=== PATIENT | male | born 1990 | race Hispanic/Latino ===

== ENCOUNTER 2022-09-27 17:41 | Emergency (ER) | payer OTHER, SELFPAY ==
[2022-09-27 17:43] VITALS: BP 130/89; PULSE 96; RESP 18; TEMP 37.4; O2SAT 99; BMI 29.2
--- NOTE | 2022-09-27 19:09 | EDS_ITS ---
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 No blood or coffee grounds.) Quality: Negative for Nonbilious, Blood streaks, Coffee ground or Hematemesis Diarrhea/Melena/Hematochezia GI Symptom: Positive for Diarrhea; Negative for Melena or Hematochezia Onset: Yesterday (5 episodes since onset) Stool Quality: Positive for Loose and Watery; Negative for Mucous, Black, Maroon or BRB per rectum Associated Symptoms Associated Symptoms: Positive for - (Reports decreased urine output); Negative for Dysuria, Frequency, Hematuria or Urgency Narrative Narrative: Patient is a 31-year-old Latvian-speaking male who presents because of burning upper abdominal pain with nausea, vomit diarrhea. He had a temperature documented to 99 degrees in the department. He complains subjectively of fever. He denies headache, visual, ocular auditory symptoms. He denies upper respiratory tract infectious symptoms. He denies coffee-ground emesis or blood in his emesis. He denies black or maroon-colored stool. He denies blood or mucus in his diarrhea. He is been in contact with no one there is been ill in the past week. He has not eaten anything that tasted unusual to him. He does endorse orthostatic symptoms, thirst and dry mouth. He has no past medical history. He has no allergies. He is on no medication. Prior similar symptoms: No Recent Illness/Hospitalization: No PFSH PFSH Medical History no medical history no medical history Home Medications ondansetron 4 mg disintegrating tablet 4 mg PO Q8H PRN PRN Nausea #5 tabs 09/27/22 [Rx Last Taken Unknown] Allergy/AdvReac Type Severity Reaction Status Date / Time No Known Allergies Allergy Verified 09/27/22 17:46 Surgical History no surgical history no surgical history Social History (Updated 09/27/22 @ 19:[address] Robin Patel MD) household members: family Smoking Status: Never smoker alcohol intake: current alcohol intake frequency: holidays/special occasions only substance use type: does not use ROS ROS ED Constitutional Constitutional ED: Reports fever(s) and subjective; Denies chills, sweats or weight loss ENT ENT ED: Denies ear pain, rhinorrhea or sore throat Cardiovascular Cardiovascular: Denies chest pain, palpitations or racing heartbeat Respiratory/Chest Respiratory/Chest: Denies cough, dyspnea or dyspnea on exertion Gastrointestinal Gastrointestinal: Reports abdominal pain, diarrhea, nausea and vomiting; Denies constipation or melena Genitourinary Genitourinary ED: Reports other Details: Decreased urine output ; Denies dysuria, hematuria or urinary frequency Musculoskeletal Musculoskeletal: Denies arthralgias, back pain, myalgias or neck pain Integumentary Denies abscess, Abrasions or rash Neurologic Neurologic: Denies headache(s), paresthesias or weakness Endocrine Endocrinology: Denies polydipsia, polyphagia or polyuria Hematologic/Lymphatic Hematologic/Lymphatic: Denies easy bleeding or easy bruising EXAM Physical Exam Const Vital Signs: 09/27/22 17:43 Temperature 99.4 F H Temperature Source Temporal Pulse Rate 96 Respiratory Rate 18 Blood Pressure 130/89 H Blood Pressure Mean 102 Pulse Ox 99 Oxygen Delivery Method Room Air Positive well nourished and well developed General Appearance ED: well developed and NAD; Negative for pallor HEENT Reports TM's clear and dry mucous membranes normocephalic and atraumatic Tympanic Membrane ED: Yes TM's clear Mouth ED: Yes dry mucous membranes Mouth: dry mucous membranes Eyes PERRL and EOMs intact bilaterally General Eye ED: Negative for pale conjunctiva or scleral icterus Neck no lymphadenopathy, supple and no JVD Resp normal respiratory effort and clear to auscultation bilaterally Cardio regular rate, regular rhythm, S1 normal heart sound, S2 normal heart sound and no murmurs GI non-distended and no masses; Negative for non-tender Auscultation: hyperactive bowel sounds Palpation: soft and tender LUQ and RUQ (Negative clinical Ng sign.) Back/Spine no CVA tenderness Extremity full ROM General Extremety ED: Negative for edema or tenderness General Extremity: Negative for edema Neuro CN's II-XII intact bilaterally and moves all extremities Sensorium / Orientation: alert Psych mental status grossly normal and thought process normal Skin no wounds General Skin Exam: Negative for jaundice or pallor MDM MDM MDM Narrative Medical decision making narrative: Patient presents with abdominal pain with nausea, vomiting diarrhea. Suspect this represents a viral gastroenteritis. Will obtain urine to assess specific gravity and for ketones and rule out hyperglycemia. Patient was medicated with Zofran for the nausea and vomiting. Bentyl for the pain and Imodium for the diarrhea. 1 L of normal saline was ordered. Since patient is on no medication with no past medical history laboratory studies were not obtained. There are no old records for review. History & Record Review Discussion w/independent historian: Patient and Other (Niece used as dental hygiene administrative assistant) Additional record(s) reviewed:: No prior records Lab Data Labs: Laboratory Results - last 24 hr 09/27/22 20:09 Urine Color Yellow Urine Clarity Clear Urine pH 5.0 Ur Specific Foster 1.025 Urine Protein 15 H Urine Glucose (UA) Normal Urine Ketones Negative Urine Occult Blood Negative Urine Nitrite Negative Urine Bilirubin Negative Urine Urobilinogen Normal Ur Leukocyte Esterase Negative Treatment and Re-Evaluation :: Patient was reassessed at 07/11/2003. Patient sitting up smiling. He has had no further vomiting or diarrhea. He does acknowledge he feels better. His exam is benign. Therefore, will discharge to home with appropriate home-going instructions. Discharge Plan Triage Chief Complaint: Abd Pain Other Complaint: Dizziness Shortness of Breath ED Provider: Robin Patel Dx/Rx/DC Orders Clinical Impression: Acute upper abdominal pain, Nausea vomiting and diarrhea, Fever, Acute dehydration Instructions: ED Gastroenteritis, Viral (Adult) Prescriptions: New ondansetron [ondansetron] 4 mg tablet,disintegrating 4 mg PO Q8H PRN PRN (Reason: Nausea) Qty: 5 0RF Primary Care Provider: Care Physician,No Primary Referrals: Care Physician,No Primary [Primary Care Provider] - Activity Restrictions/Additional Instructions: Take Imodium for diarrhea. No more than 8 capsules in a 24-hour. Print Language: Latvian Disposition Disposition: Home, Self Care
[2022-09-27] MEDS: Dicyclomine 10 MG Capsule 20 MG PO (19:10)
[2022-09-27] MEDS: Loperamide 2 MG Capsule 4 MG PO (19:10)
[2022-09-27] MEDS: Ondansetron 4 MG/2 ML Vial IV (19:10)
[2022-09-27] MEDS: 0.9% Normal Saline 1,000 ML 1000 ML IV (19:10)
[2022-09-27 21:51] VITALS: O2SAT 98
== END 2022-09-27 21:53 | disposition home or self-care (01) ==
PROVIDERS: Emergency Provider Emergency Medicine; Visit Provider Emergency Medicine
DX: R10.10 Upper abdominal pain, unspecified (principal); R11.2 Nausea with vomiting, unspecified; R50.9 Fever, unspecified; E86.0 Dehydration; R19.7 Diarrhea, unspecified
CPT/HCPCS: 96374; 99283; J7030; A4216; J2405